=== PATIENT | male | born 1945 | race Caucasian/White ===

== ENCOUNTER → 2018-02-17 | Day surgery (SDC) | payer MEDICARE ==
[~2018-02-17] MED LIST: ACETAMINOPHEN 1000 MG/100 ML 100 ML IV ONE; DEXAMETHASONE SOD PHOS 4 MG/ML VIAL ONE; EPINEPHrine HCL (1:1000) 1 MG/ML VIAL ONE; LACTATED RINGER'S 1000 ML INJ 1,000 ML ONE; MEPERIDINE HCL 25 MG/ML VIAL ONE; MIDAZOLAM HCL 2 MG/2 ML VIAL ONE; MOXIFLOXACIN 0.5% OPHT SOLN 3 ML BTL ONE; PHENYLEPHRINE HCL 10% OPTH SOLN 5 ML BTL ONE; PROPOFOL 200 MG/20 ML AMP IV ONE; TETRACAINE 0.5% OPTH SOLN 15 ML BTL ONE; TOBRAMYCIN/DEXAMETHASONE OPTH OINT 3.5 GM TUBE ONE; TRIAMCINOLONE ACETONIDE 40 MG/ML VIAL ONE; acetaZOLAMIDE SEQUELS 500 MG SUSTAINED RELEASE CAP ONE; ceFAZolin INJ 1,000 MG VIAL ONE; prednisoLONE ACETATE 1% OPHT SUSP 5 ML BTL ONE
--- NOTE | 2018-02-26 17:49 | MP ---
cc: Holland Jackson MD, Richard L MD DATE OF OPERATION: 02/17/2018 PREOPERATIVE DIAGNOSIS: Dislocated intraocular lens, left eye, retained cataract fragment, left eye, peripheral vitreous traction and impending retinal tears, left eye. POSTOPERATIVE DIAGNOSIS: Dislocated intraocular lens, left eye, retained cataract fragment, left eye, peripheral vitreous traction and impending retinal tears, left eye. PROCEDURE: Pars plana vitrectomy, scleral fixation of posterior chamber intraocular lens, MA 60 AC 19.0 diopter power, explantation of dislocated intraocular lens, endolaser, pars plana lensectomy of remaining cataract fragment, left eye. ANESTHESIA: Dr. Jules with general. ESTIMATED BLOOD LOSS: Less than 1 mL COMPLICATIONS: None. INDICATIONS FOR PROCEDURE: This is a delightful patient who presented with dislocated posterior chamber intraocular lens and small retained cataract fragment. The patient elected for surgical correction and understands the risks, benefits and alternatives. The patient has history of trauma without adequate capsular support for intraocular lens placement. PROCEDURE NOTE: After informed consent was obtained, the patient was brought to the operating room where general anesthesia was established. The left eye was prepped and draped in sterile fashion with Betadine in the conjunctival fornix. A 3 port pars plana vitrectomy was established with a self-retaining infusion cannula. Core vitreous was evacuated and the posterior chamber intraocular lens was freed from surrounding vitreous. The posterior chamber intraocular lens was explanted. The retained lens fragment was removed with lensectomy. An MA 60 AC 19.0 diopter power intraocular lens was inserted and scleral fixated with haptics placed in scleral tunnels. Scleral depression examination revealed areas of retinal traction impending tears which were treated with endolaser. Intraocular Kenalog was instilled. Trocars were removed and sclerotomies closed with 7-0 Vicryl suture. Conjunctiva was reapproximated with 6-0 plain gut. The haptics were secured in the scleral tunnels with a 7-0 Vicryl suture. Subconjunctival injection of Ancef and dexamethasone were given. The eye was patched with Tobramycin ointment. The patient was brought to recovery room in stable condition and will continue to followup [facility] for his postoperative care. MD MAYANK Smith/ , 05:15 PM , 05:47 PM
== END | disposition home or self-care (01) ==
LOC: ESDC 07:44
PROVIDERS: ATTEND Ophthalmology
DX: H27.132 Posterior dislocation of lens, left eye (principal); H59.022 Cataract (lens) fragments in eye following cataract surgery, left eye; H43.812 Vitreous degeneration, left eye
CPT/HCPCS: 00142; 66825; 66852; J0131; J0171; J0690; J1100; J2175; J2250; J3010; J3301; J7120; V2632